=== PATIENT | female | born 1980 | race Caucasian/White ===

== ENCOUNTER 2021-05-08 11:15 | Emergency (ER) | payer OTHER ==
[~2021-05-08] VITALS: Ht 185.4 cm; Wt 81.6 kg
--- NOTE | 2021-05-08 11:30 | NUR ---
The patient bibs for c/o abscess to mid back x 4 days. Rates pain 8/10 on and off. Respiration regular and unlabored. Will continue to monitor the patient.
[2021-05-08] MEDS ORDERED: CLIN300C12 PO (12:14)
[2021-05-08 12:29] VITALS: BP 128/76
--- NOTE | 2021-05-08 12:29 | NUR ---
Patient discharged to home in stable condition. Written and verbal after care instructions given. Patient verbalizes understanding of instruction.
== END 2021-05-08 12:29 | disposition home or self-care (01) ==
LOC: ER 11:15
DX: L02.212 Cutaneous abscess of back [any part, except buttock and flank] (principal); L03.312 Cellulitis of back [any part except buttock and flank]; E11.9 Type 2 diabetes mellitus without complications; Z79.899 Other long term (current) drug therapy